=== PATIENT | female | born 1945 | race Caucasian/White ===

== ENCOUNTER 2017-06-14 14:50 | Emergency (ER) | payer MEDICARE, OTHER ==
[2017-06-14] MEDS ORDERED: IPRATROPIUM/ALBUTEROL 0.5-2.5 MG/3 ML AMPUL NEB ONE ×2 (15:22→16:35)
[2017-06-14] MEDS ORDERED: METHYLPREDNISOLONE INJ 125 MG/2 ML SDV IV ONE (15:23)
--- NOTE | 2017-06-14 15:25 | ER Document Report ---
ED Medical Screen (RME) - General Chief Complaint: Breathing Difficulty Stated Complaint: SHORTNESS OF BREATH Time Seen by Provider: 06/14/17 15:22 Notes: 72-year-old female history of smoking addiction and frequent "asthma exacerbations". Patient denies being diagnosed with COPD. States that she does have CHF and cardiomyopathy. Smokes on a regular basis. Has been using her inhaler frequently but getting worse. Has some pain in her chest as well. Had a recent workup this last year and was found to have an aneurysm in her chest. TRAVEL OUTSIDE OF THE [place] IN LAST 30 DAYS: No - HPI Onset: Last week Onset/Duration: Gradual, Worse Quality of pain: Pressure Severity: Moderate Pain Level: 2 - Related Data Allergies/Adverse Reactions: meperidine [From Demerol] Allergy (Verified 06/14/17 14:53) morphine Allergy (Verified 06/14/17 14:53) Home Medications: Current Home Medications Albuterol Sulfate 1.25 mg NEB ASDIR PRN 06/14/17 [History] Albuterol Sulfate [Proair HFA] 2 puff IH Q6H PRN 06/14/17 [History] Alprazolam [Xanax 0.25 mg Tablet] 1 tab PO QHS 06/14/17 [History] Amlodipine Besylate [Norvasc 5 mg Tablet] 1 tab PO DAILY 06/14/17 [History] Atorvastatin Calcium [Lipitor 40 mg Tablet] 1 tab PO QHS 06/14/17 [History] Citalopram Hydrobromide [Celexa 10 mg Tablet] 5 mg PO QHS 06/14/17 [History] Fluticasone/Salmeterol [Advair 250-50 Diskus 28 dose] 1 puff IH DAILY 06/14/17 [ History] Levothyroxine Sodium [Synthroid 0.075 mg Tablet] 1 tab PO DAILY 06/14/17 [ History] Lisinopril 1 tab PO DAILY 06/14/17 [History] Metoclopramide HCl [Reglan] 1 tab PO QHS 06/14/17 [History] Metoprolol Succinate 1 tab PO DAILY 06/14/17 [History] Past Medical History - Social History Frequency of alcohol use: Rare Drug Abuse: None Renal/ Medical History: Denies: Hx Peritoneal Dialysis Physical Exam - Vital signs Vitals: Temp Pulse Resp BP Pulse Ox 97.7 F 77 20 175/77 H 92 06/14/17 14:53 06/14/17 14:53 06/14/17 14:53 06/14/17 14:53 06/14/17 14:53 Course - Re-evaluation Re-evalutation: 06/14/17 15:25 I have greeted and performed a rapid initial assessment of this patient. A comprehensive ED assessment and evaluation of the patient, analysis of test results and completion of the medical decision making process will be conducted by additional ED providers. - Vital Signs Vital signs: Temp Pulse Resp BP Pulse Ox 97.7 F 77 20 175/77 H 92 06/14/17 14:53 06/14/17 14:53 06/14/17 14:53 06/14/17 14:53 06/14/17 14:53
--- NOTE | 2017-06-14 15:40 | RADIOLOGY REPORT (SQ) ---
EXAM DESCRIPTION: CHEST SINGLE VIEW COMPLETED DATE/TIME: 06/14/2017 3:33 pm REASON FOR STUDY: sob COMPARISON: None. NUMBER OF VIEWS: One view. TECHNIQUE: Single frontal radiographic view of the chest acquired. LIMITATIONS: None. FINDINGS: LUNGS AND PLEURA: No opacities, masses or pneumothorax. No pleural effusion. MEDIASTINUM AND HILAR STRUCTURES: No masses. Contour normal. HEART AND VASCULAR STRUCTURES: Heart enlarged without failure. Normal vasculature. BONES: No acute findings. HARDWARE: None in the chest. OTHER: No other significant finding. IMPRESSION: HEART ENLARGED WITHOUT FAILURE. NO OTHER SIGNIFICANT RADIOGRAPHIC FINDING IN THE CHEST. TECHNICAL DOCUMENTATION: JOB ID: [id number] [employer]- All Rights Reserved
--- NOTE | 2017-06-14 15:47 | ER Document Report ---
ED Respiratory Problem - General Chief Complaint: Breathing Difficulty Stated Complaint: SHORTNESS OF BREATH Time Seen by Provider: 06/14/17 15:22 Notes: Patient is complaining of about 6 days duration of progressively worsening shortness of breath. She has home nebulizers and inhalers that she has been using but not really helping much. She does have a productive cough which is producing clear phlegm, no blood present. 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 Patient continues to smoke about three fourths of a pack of cigarettes a day. Patient has a history of a thoracic aortic aneurysm being followed by doctors in [place], most recently seen in November of this year and not scheduled back for another year. TRAVEL OUTSIDE OF THE [place] IN LAST 30 DAYS: No - Related Data Allergies/Adverse Reactions: meperidine [From Demerol] Allergy (Verified 06/14/17 14:53) morphine Allergy (Verified 06/14/17 14:53) Home Medications: Current Home Medications Albuterol Sulfate 1.25 mg NEB ASDIR PRN 06/14/17 [History] Albuterol Sulfate [Proair HFA] 2 puff IH Q6H PRN 06/14/17 [History] Alprazolam [Xanax 0.25 mg Tablet] 1 tab PO QHS 06/14/17 [History] Amlodipine Besylate [Norvasc 5 mg Tablet] 1 tab PO DAILY 06/14/17 [History] Atorvastatin Calcium [Lipitor 40 mg Tablet] 1 tab PO QHS 06/14/17 [History] Citalopram Hydrobromide [Celexa 10 mg Tablet] 5 mg PO QHS 06/14/17 [History] Fluticasone/Salmeterol [Advair 250-50 Diskus 28 dose] 1 puff IH DAILY 06/14/17 [ History] Levothyroxine Sodium [Synthroid 0.075 mg Tablet] 1 tab PO DAILY 06/14/17 [ History] Lisinopril 1 tab PO DAILY 06/14/17 [History] Metoclopramide HCl [Reglan] 1 tab PO QHS 06/14/17 [History] Metoprolol Succinate 1 tab PO DAILY 06/14/17 [History] Past Medical History - Social History Smoking Status: Current Every Day Smoker Frequency of alcohol use: Rare Drug Abuse: None Family History: Reviewed & Not Pertinent Patient has suicidal ideation: No Patient has homicidal ideation: No - Past Medical History Cardiac Medical History: Reports: Hx Congestive Heart Failure - Told she has cardiomyopathy and CHF by her doctor., Hx Coronary Artery Disease - was told she has 2 blockages, but did not need stents, Nov, 2016, Hx Hypercholesterolemia , Hx Hypertension, Other - History of thoracic aortic aneurysm followed by in [place], last November Denies: Hx Atrial Fibrillation Pulmonary Medical History: Reports: Hx Asthma Denies: Hx COPD - Has not been officially told that she has COPD. Endocrine Medical History: Denies: Hx Diabetes Mellitus Type 2 Review of Systems - Review of Systems Notes: REVIEW OF SYSTEMS: CONSTITUTIONAL : Denies fever. EENT: Denies eye, ear, nose or mouth or throat pain or other symptoms. CARDIOVASCULAR: Denies chest pain. Sometimes has pressure in her chest when she is coughing very hard. RESPIRATORY: See HPI. GASTROINTESTINAL: Denies abdominal pain or nausea, vomiting, or diarrhea. GENITOURINARY: Denies difficulty or painful urinating, urinary frequency, blood in urine. MUSCULOSKELETAL: Denies back or neck pain. Denies joint pain or swelling. SKIN: Denies rash or skin lesions. NEUROLOGICAL: Denies LOC or altered mental status. Denies headache. Denies sensory loss or motor deficits. ALL OTHER SYSTEMS REVIEWED AND NEGATIVE. Physical Exam - Vital signs Vitals: Temp Pulse Resp BP Pulse Ox 97.7 F 77 20 175/77 H 92 06/14/17 14:53 06/14/17 14:53 06/14/17 14:53 06/14/17 14:53 06/14/17 14:53 Interpretation: Hypertensive - Mild. No: Hypoxic, Febrile - Notes Notes: PHYSICAL EXAMINATION: GENERAL: Well-appearing, in mild acute distress. HEAD: Atraumatic, normocephalic. EYES: Pupils equal round and reactive to light, extraocular movements intact. ENT: oropharynx clear without exudates. Moist mucous membranes. NECK: Normal range of motion, supple. LUNGS: Patient has bilateral expiratory wheezes, moderate intensity. No rales heard. Few rhonchi. Good air exchange. Not hypoxic, O2 sat 92%. HEART: Regular rate and rhythm without murmurs. ABDOMEN: Soft, nontender. No guarding or rebound. BACK: No tenderness throughout entire back. EXTREMITIES: Normal range of motion without pain. No pretibial edema of either leg. Negative Homans bilaterally. NEUROLOGICAL: Normal speech, normal gait. Normal sensory, motor, and reflex exams. Awake, alert, and oriented x3. Cranial nerves normal. PSYCH: Normal mood, normal affect. SKIN: Warm, dry, no rashes. Course - Re-evaluation Re-evalutation: 06/14/17 19:04 Patient had improved breathing after a couple of naps with Atrovent and albuterol. She was also given Solu-Medrol IV. That should be working about the time she was discharged. Patient is being started on antibiotics because of her long smoking history and the productive cough. I am adding ipratropium to her regimen of inhaled medications. Patient was once again strongly urged to stop smoking. - Vital Signs Vital signs: Temp Pulse Resp BP Pulse Ox 97.7 F 78 30 H 157/79 H 97 06/14/17 14:53 06/14/17 16:26 06/14/17 16:26 06/14/17 16:26 06/14/17 16:26 - Laboratory Result Diagrams: 06/14/17 15:56 06/14/17 15:56 Laboratory results interpreted by me: 06/14/17 06/14/17 06/14/17 15:56 15:56 15:56 RDW 14.8 H Eosinophils % 12.2 H Absolute Eosinophils 1.0 H Sodium 146.0 H Chloride 109 H Est GFR (Non-Af Amer) 49 L Glucose 112 H NT-Pro-B Natriuret Pep 1170 H - Diagnostic Test Radiology results interpreted by me: 06/14/17 17:49 Chest x-ray shows slight cardiomegaly, but no overt congestive failure, no infiltrates, etc. Discharge - Discharge Clinical Impression: COPD exacerbation, Asthma, Bronchitis Disposition: HOME, SELF-CARE Additional Instructions: Chronic Obstructive Lung Disease You have chronic obstructive lung disease (COPD). The symptoms come from emphysema (damage to small airways, with trapping of air in large sacks in the lung) and chronic bronchitis (repeated infection and damage to larger airways). The cause is almost always cigarette smoking, although dust exposure, asthma, and infections contribute. You should avoid fumes, dust, and smoke (especially tobacco smoke). Your condition will flare from time to time. There is no cure, but the symptoms can be treated. Bronchodilators (asthma medicine) are often helpful. Antibiotics help when infection is present. When shortness of breath is severe, we may prescribe cortisone medication. If medicine doesn't help enough, we can arrange for you to have an oxygen tank at home. Notify your doctor at once if sputum becomes thick, foul, or bloody, if you develop a fever or chest pain, or if your shortness of breath worsens. ASTHMA: You have been diagnosed as having asthma. This is a condition where there is episodic tightness in the bronchial tubes. Allergies, infections, and polluted or cold air may be contributing factors. Emergency treatment of a severe asthma attack may include adrenaline shots , or bronchodilator aerosol. You may feel lightheaded, have a decreased exercise tolerance and a rapid pulse for an hour or two. Rest and get plenty of fluids. Home treatment of asthma requires bronchodilator drugs. These can be administered by injection, inhalation, or by mouth. Antibiotics and corticosteroids may be required for some patients. You should avoid chemical fumes, dusts, pollens, and exercising in very cold or dry air. If you smoke, stop!! If you develop a fever, increased wheezing, chest pain, or severe shortness of breath, you should contact the doctor immediately. STEROID MEDICATION: You have been given an injection of or oral medicine of the cortisone/ steroid class. This medication is used to control inflammation or allergy. Phill t is usually only given for a short period of time, until the acute process subsides. There are usually no side effects from short-term use of cortisone-like medications. Some persons feel an increased sense of well-being and are not sleepy at bedtime. Long-term use of cortisone medications is best avoided, unless required for a severe condition. If your condition does not remit, or relapses after the course of corticosteroid medication, you should consult your physician. INHALED BRONCHODILATORS: You have received treatment(s) of and/or prescription for an inhaled bronchodilator -- a medication which stimulates the airways in the lung to dilate. This improves the flow of air in asthma, bronchitis, and emphysema. These medicines have some similarity to adrenaline, and can cause similar side effects: shakiness, racing heart, and a sense of nervousness. These side effects decrease with time. Contact your doctor if these side effects are severe. Do not over-use the medicine. Too-frequent use of the inhaler may make it ineffective. Call your doctor if the inhaler is not controlling your symptoms at the prescribed doses. SMOKING: If you smoke, you should stop smoking. The tar and chemicals in cigarette smoke are harmful. Smoking has been shown to cause: emphysema chronic bronchitis lung cancer mouth and throat cancer stomach and pancreas cancer premature aging defects In addition, smoking increases ear and lung infections in children of smokers. AZITHROMYCIN: Azithromycin (Zithromax) is a broad spectrum antibiotic in the same class as erythromycin. It can treat a variety of bacterial infections, but is most frequently used for respiratory infections. Azithromycin is extremely long-lasting. It accumulates in body tissues and continues to kill bacteria for many days. In order to improve absorption, Azithromycin should be taken at least one hour before or two hours after a meal. It does not have the same strong tendency to upset the stomach as erythromycin and is usually very well tolerated. Patients who have had a rash or other true allergic reactions to erythromycin should not take this medication. Call if you develop gastrointestinal distress, severe diarrhea, rash, hives, itching, or shortness of breath. FOLLOW-UP CARE: If you have been referred to a physician for follow-up care, call the physician s office for an appointment as you were instructed or within the next two days. If you experience worsening or a significant change in your symptoms, notify the physician immediately or return to the Emergency Department at any time for re-evaluation. Prescriptions: Hydrocodone/Acetaminophen [[place] 5-325 mg Tablet] 1 tab PO Q4HP PRN #12 tablet PRN Reason: as needed for cough Azithromycin [Zithromax 250 mg Tablet] 250 mg PO ASDIR PRN #6 tablet PRN Reason: Ipratropium Carter [Atrovent 0.02% Neb 0.5 Mg/2.5 Ml Vial.Neb] 0.5 mg IH Q4H # 25 vial.neb Prednisone [Deltasone 10 mg Tablet] 10 mg PO ASDIR PRN #21 tablet PRN Reason:
[2017-06-14 16:13] LABS: ABSOLUTE BASOPHILS # (AUTO) 0.1 10^3/uL (0.0-0.2); ABSOLUTE LYMPHOCYTES (AUTO) 1.9 10^3/uL (0.5-4.7); ABSOLUTE MONOCYTES (AUTO) 0.4 10^3/uL (0.1-1.4); ABSOLUTE NEUT (AUTO) 4.7 10^3/uL (1.7-8.2); BASOPHILS % (AUTO) 0.6 % (0-2); EOSINOPHILS % (AUTO) 12.2 % (0-6); HEMATOCRIT 41.6 % (36.0-47.0); HEMOGLOBIN 14.3 g/dL (12.0-15.5); HGB HCT DIFFERENCE 1.3; LYMPHOCYTES % (AUTO) 23.6 % (13-45); MEAN CORPUSCULAR HEMOGLOBIN 32.5 pg (27.0-33.4); MEAN CORPUSCULAR HGB CONC 34.4 g/dL (32.0-36.0); MEAN CORPUSCULAR VOLUME 95 fl (80-97); MONOCYTES % (AUTO) 4.8 % (3-13); RED CELL DISTRIBUTION WIDTH 14.8 % (11.5-14.0); SEGMENTED NEUTROPHILS % (AUTO) 58.8 % (42-78); WHITE BLOOD COUNT 8.1 10^3/uL (4.0-10.5)
[2017-06-14 16:27] VITALS: BP 157/79
[2017-06-14 16:27] LABS: ALANINE AMINOTRANSFERASE 23 U/L (9-52); ALBUMIN 4.1 g/dL (3.5-5.0); ALKALINE PHOSPHATASE 87 U/L (38-126); ANION GAP 12 (5-19); ASPARTATE AMINO TRANSFERASE 17 U/L (14-36); BILIRUBIN,DIRECT 0.4 mg/dL (0.0-0.4); BILIRUBIN,TOTAL 0.4 mg/dL (0.2-1.3); BLOOD UREA NITROGEN 14 mg/dL (7-20); CALCIUM 9.8 mg/dL (8.4-10.2); CARBON DIOXIDE 25 mmol/L (22-30); CHLORIDE 109 mmol/L (98-107); CREATININE RESULT 1.09 mg/dL (0.52-1.25); GLUCOSE 112 mg/dL (75-110); POTASSIUM 4.2 mmol/L (3.6-5.0); TOTAL PROTEIN 6.5 g/dL (6.3-8.2)
[2017-06-14 16:36] LABS: TROPONIN I 0.012 ng/mL
[2017-06-14] MEDS ORDERED: AZITHROMYCIN 250 MG TABLET PO ONE (16:45)
--- NOTE | 2017-06-15 14:45 | EKG REPORT ---
SEVERITY:- ABNORMAL ECG - SINUS RHYTHM INFERIOR INFARCT, AGE INDETERMINATE : Confirmed by: Beth Barrera MD 15-Jun-2017 14:44:12
== END 2017-06-14 18:25 | disposition home or self-care (01) ==
LOC: ER 14:50
DX: J44.1 Chronic obstructive pulmonary disease with (acute) exacerbation (principal); J45.901 Unspecified asthma with (acute) exacerbation; I50.9 Heart failure, unspecified; F17.200 Nicotine dependence, unspecified, uncomplicated; Z88.6 Allergy status to analgesic agent
CPT/HCPCS: 93005; 94640 ×2; 99285; 96374; 36415; 85025; 80053; 84484; 87804; 83880; 71010; 93010; A9270 ×2; J2930; J7620